=== PATIENT | male | born 1945 | race Caucasian/White ===

== ENCOUNTER 2018-11-13 14:29 | Inpatient (IN) ==
[2018-11-13 14:58] LABS: URINE SOURCE CLEAN CATCH
--- NOTE | 2018-11-13 15:03 | Diag Imaging Result Doc PS360 ---
EXAM: KUB ABDOMEN 11/13/2018 HISTORY: abdominal pain TECHNIQUE: KUB COMMENT: There is gas throughout the colon. There is no evidence organomegaly or mass. There are surgical clips in the pelvis consistent with previous prostatectomy. There is no evidence of bowel obstruction. IMPRESSION: Nonspecific abdomen. Electronically signed by Barney Colón 11/13/2018 3:00 PM
[2018-11-13 15:19] LABS: BILIRUBIN URINE NEGATIVE (NEGATIVE); BLOOD URINE NEGATIVE (NEGATIVE); COLOR YELLOW; GLUCOSE URINE 300 mg/dL (NEGATIVE); KETONE URINE NEGATIVE (NEGATIVE); LEUKOCYTES URINE NEGATIVE (NEGATIVE); NITRITE URINE NEGATIVE (NEGATIVE); PH URINE 8.5; PROTEIN URINE TRACE mg/dL (NEGATIVE); SP GRAVITY URINE 1.014; TURBIDITY URINE CLEAR (CLEAR); UROBILINOGEN URINE NORMAL (NORMAL)
[2018-11-13 15:22] LABS: UR EPITHELIAL CELLS <10 /HPF (<10); URINE BACTERIA NEGATIVE /HPF; URINE RBC <10 /HPF (<10); URINE WBC <10 /HPF (<10)
[2018-11-13 15:23] LABS: AGAP 11; ALB/GLOB RATIO 1.3; ALBUMIN 4.2 g/dL (3.5-5.0); ALKALINE PHOSPHATASE 74 U/L (32-122); AMYLASE 42 U/L (20-200); BUN 13 mg/dL (8-22); CALCIUM 9.5 mg/dL (8.8-10.2); CHLORIDE 97 mmol/L (98-107); COSMO 274; CREATININE 0.9 mg/dL (0.7-1.2); ESTIMATED GFR > 60; GLUCOSE 231 mg/dL (70-104); GOT 16 U/L (10-34); GPT 13 U/L (10-44); LIPASE 43 U/L (13-60); POTASSIUM 3.9 mmol/L (3.5-5.1); SODIUM 133 mmol/L (136-145); TCO2 25 mmol/L (25-35); TOTAL BILIRUBIN 0.47 mg/dL (0.20-1.00); TOTAL PROTEIN 7.4 g/dL (6.3-8.3)
[2018-11-13 15:26] LABS: BASO# 0.04 X1000 (0.0-0.2); BASO% 0.2 % (0.0-0.8); EOS# 0.12 X1000 (0.0-0.7); EOS% 0.7 % (0.0-10.0); HEMATOCRIT 43.3 % (42.0-52.0); HEMOGLOBIN 14.7 g/dL (14.0-18.0); IMM GRAN# 0.06 X1000 (0.0-0.04); IMM GRAN% 0.3 % (0.0-0.5); LYMPH# 1.45 X1000 (1.2-3.4); LYMPH% 7.9 % (20.5-51.1); MCH 30.8 PG (27-31); MCHC 33.9 g/dL (33-37); MCV 90.6 FL (81-99); MONO# 1.43 X1000 (0.11-0.59); MONO% 7.8 % (1.7-9.3); MPV 10.3 FL (7.4-10.4); NEUT# 15.14 X1000 (1.4-6.5); NEUT% 83.1 % (42.2-75.2); PLT 250 X1000 (130-400); RBC 4.78 XMIL (4.7-6.1); RDW 12.8 % (11.5-14.5); WBC 18.24 X1000 (4.8-10.8)
--- NOTE | 2018-11-13 16:18 | Diag Imaging Result Doc PS360 ---
EXAM: CT ABDOMEN/PELVIS W/O CONTRAST 11/13/2018 HISTORY: FLANK PAIN TECHNIQUE: This exam was performed using automated exposure control, adjustment of mA or kV according to patient size, and/or use of iterative reconstruction technique. COMMENT: There is no evidence of acute disease in the visualized portion of the chest. There are no previous studies available for comparison. There is a large hiatal hernia. There is no evidence of nephrolithiasis or hydronephrosis. There is dilatation of the infrarenal abdominal aorta to a maximum AP diameter of 3.1 cm. There is inflammatory change in the fat surrounding the pancreatic head. The stomach is not distended. The gallbladder is not distended. There may be a small stone in the neck of the gallbladder. The common bile duct is distended to over 11 mm in its midportion. There is no evidence of bowel obstruction. There is no evidence of significant adenopathy. There is no evidence of appendicitis. There is no evidence of free fluid. There has been previous prostatectomy. There is a fat-containing inguinal hernia on the left and there has apparently been previous right herniorrhaphy. There are degenerative disc changes at the L5-S1 level. There is no evidence of acute bony abnormality. IMPRESSION: Pancreatitis involving the pancreatic head. The possibility of an obstructing stone or other lesion in the distal common bile duct cannot be excluded. The lack of intravenous contrast limits evaluation. Electronically signed by Barney Colón 11/13/2018 4:16 PM
--- NOTE | 2018-11-13 16:19 | Diag Imaging Result Doc PS360 ---
EXAM: CHEST-2 VIEWS 11/13/2018 HISTORY: ABD PAIN TECHNIQUE: PA and lateral chest COMMENT: There is COPD. There is ill-defined opacity in the mid right lung apparently in the upper lobe which was not present on 03/12/2018. Otherwise are has been no significant change in the appearance of the chest. IMPRESSION: Minimal pneumonia right upper lobe. Advise follow-up until clear. Electronically signed by Barney Colón 11/13/2018 4:17 PM
[2018-11-13] MEDS ORDERED: NS 1,000 ML IV ONE (16:22)
[2018-11-13] MEDS ORDERED: ROCEPHIN 1 GM in NS 50 ML IV ONE (16:22)
[2018-11-13] MEDS ORDERED: ZITHROMAX 500 MG/NS 500 MG/250 ML IVPB IV ONE (16:22)
[2018-11-13] MEDS ORDERED: MORPHINE IV ONE ×2 (16:27→18:24)
[2018-11-13] MEDS ORDERED: ZOFRAN IV ONE (16:27)
--- NOTE | 2018-11-13 16:40 | PROVIDER DOCUMENTATION ---
This chart was entered by Sita Davis Scribe, acting as scribe for Charles Sena MD. HPI-Abdominal Pain/GI Problem - General Chief Complaint: Abdominal Pain Stated Complaint: ABDOMINAL PAIN Time Seen by Provider: 11/13/18 16:24 Source: patient - History of Present Illness-ABD Nature of Presenting Problems: Patient is a 73 year old male who presents with epigastric abdominal pain. States pain has been present for 3 days. Denies nausea, vomiting and diarrhea. Reports having mild constipation. Abdominal Pain Onset Location: reports: epigastric Pain Radiation: reports: no radiation Quality of Pain: reports: aching Severity in ED: reports: mild Onset/Duration: reports: 3 days ago Timing: reports: still present Activities at Onset: reports: light activity Associated Symptoms: reports: constipation. denies: diarrhea, nausea, vomiting Bruising or Bleeding Gums?: No Similar Symptoms Previously?: Yes Recently seen or treated by another doctor?: No Review of Systems - Adult - REVIEW OF SYSTEMS - ADULT Constitutional: reports: no symptoms reported. denies: chills, fever, fatique Eyes: reports: no symptoms reported Ears, Nose, Mouth & Throat: reports: no symptoms reported Cardiovascular: reports: no symptoms reported Respiratory: reports: see HPI, cough. denies: shortness of breath, wheezing Gastrointestinal: reports: see HPI, abdominal pain (epigastric). denies: diarrhea, nausea, vomiting Genitourinary: reports: no symptoms reported Musculoskeletal: reports: no symptoms reported Integumentary: reports: no symptoms reported Neurological: reports: no symptoms reported Psychiatric: reports: no symptoms reported Endocrine: reports: no symptoms reported Hematologic/Lymphatic: reports: no symptoms reported Allergic/Immunologic: reports: no symptoms reported All Other Systems: Reviewed and Negative Past History - Adult - PAST MEDICAL HISTORY-ADULT Review of Records: reports: Old Records Reviewed, Nursing Assessment Review, Medications Reviewed, Social history reviewed & non-contributory. Major Childhood Illnesses: reports: denies history Cardiovascular: reports: denies history Respiratory: reports: denies history Gastrointestinal: reports: denies history Obstetrical/Gynecological: reports: denies history Genitourinary: reports: denies history Musculoskeletal: reports: denies history Neurological: reports: denies history Endocrine/Immune: reports: denies history Other Conditions: reports: denies history - PRIOR SURGERIES/PROCEDURES Surgical/Procedure History: reports: reviewed, not pertinent - IMMUNIZATION STATUS Childhood Immunizations: See Nurse Assessment Flu Vaccine: See Nurse Assessment - FAMILY HISTORY Family History: reviewed, not pertinent - SOCIAL HISTORY Smoking: denies Substance Use: denies Living Situation: family Physical Exam-General - PHYSICAL EXAM-ADULT Initial Vital Signs Reviewed: Yes - CONSTITUTIONAL General Appearance: alert, no apparent distress. negative: lethargic - EYES Eyes: PERRL/EOMI, pink conjunctivae. negative: scleral icterus - HEAD, EARS, NOSE, MOUTH & THROAT HENMT: normocephalic/atraumatic, moist mucous membranes. negative: angioedema - RESPIRATORY Respiratory: chest non-tender, lungs clear, normal breath sounds. negative: crackles, stridor - CARDIOVASCULAR Cardiovascular: normal peripheral pulses, regular rate, rhythm. negative: tach ycardia - GASTROINTESTINAL (ABDOMEN) Abdominal Exam: normal bowel sounds, soft, tenderness (epigastric). negative: guarding - MUSCULOSKELETAL Extremity: normal range of motion, non-tender, normal inspection. negative: de formity, erythema - SKIN Integumentary: normal color, normal turgor, warm/dry. negative: diaphoresis, jaundice, rash - NEUROLOGIC Neurologic: grossly normal. negative: aphasia, facial droop - PSYCHIATRIC Psych/Mental Status: normal mood/affect, oriented x 3. negative: anxious Progress - PLAN OF CARE/RESULTS Progress/Plan/Lab Results: Vital Signs - 8 hr 11/13/18 14:38 Temperature 98.2 F Pulse Rate 91 H Respiratory Rate 16 Blood Pressure 150/64 O2 Sat by Pulse Oximetry 96 Laboratory Results - last 24 hr 11/13/18 11/13/18 11/13/18 14:44 14:50 14:50 WBC 18.24 H RBC 4.78 Hgb 14.7 Hct 43.3 MCV 90.6 MCH 30.8 MCHC 33.9 RDW Std Deviation 12.8 Plt Count 250 MPV 10.3 Immature Gran % (Auto) 0.3 Neut % (Auto) 83.1 H Lymph % (Auto) 7.9 L [place] % (Auto) 7.8 Eos % (Auto) 0.7 Baso % (Auto) 0.2 Immature Gran # (Auto) 0.06 H Neut # (Auto) 15.14 H Lymph # (Auto) 1.45 [place] # (Auto) 1.43 H Eos # (Auto) 0.12 Baso # (Auto) 0.04 Sodium 133 L Potassium 3.9 Chloride 97 L Carbon Dioxide 25 Anion Gap 11 BUN 13 Creatinine 0.9 Estimated GFR/1.73 m2 > 60 BUN/Creatinine Ratio 14 Glucose 231 H Calculated Osmolality 274 Calcium 9.5 Total Bilirubin 0.47 AST 16 ALT 13 Alkaline Phosphatase 74 Total Protein 7.4 Albumin 4.2 Globulin 3.2 Albumin/Globulin Ratio 1.3 Amylase 42 Lipase 43 Urine Source CLEAN CATCH Urine Color YELLOW Urine Turbidity CLEAR Urine pH 8.5 Ur Specific [place] 1.014 Urine Protein TRACE A Ur Glucose (Stick) 300 A Ur Ketones (Stick) NEGATIVE Urine Blood NEGATIVE Urine Nitrite NEGATIVE Urine Bilirubin NEGATIVE Urobilinogen Dipstick NORMAL Urine Leukocytes NEGATIVE Urine WBC (Auto) <10 Urine RBC (Auto) <10 U Epithel Cells (Auto) <10 Urine Bacteria (Auto) NEGATIVE Orders Category Date Time Status Saline Loc DIRECTED Care 11/13/18 14:41 Active NPO Diet 11/13/18 14:41 Active CHEST-2 VIEWS [RAD] Stat Exams 11/13/18 15:[address] ABDOMEN/PELVIS W/O CONTRAST [CT] Stat Exams 11/13/18 15:29 Completed KUB ABDOMEN [RAD] Stat Exams 11/13/18 14:42 Completed AMYLASE [CHEM] Stat Lab 11/13/18 14:50 Completed BLOOD CULTURE [BLDCUL] Stat Lab 11/13/18 16:22 Uncollected CBC WITH ELECTRONIC DIFF [HEME] Stat Lab 11/13/18 14:50 Completed COMPREHENSIVE METABOLIC PANEL [CHEM] Stat Lab 11/13/18 14:50 Completed LACTATE, PLASMA [CHEM] Stat Lab 11/13/18 16:22 Uncollected LIPASE [CHEM] Stat Lab 11/13/18 14:50 Completed URINALYSIS W/POSS RFLX CULT [URINALYSIS] Stat Lab 11/13/18 14:44 Completed 0.9% Sodium Chloride Inj [Ns] 1,000 ml Med 11/13/18 16:22 Active IV 150 mls/hr Azithromycin 500 mg/Ns [Zithromax 500 mg/Ns] Med 11/13/18 16:22 Active 500 mg in 250 ml IV NOW CefTRIAXONE [Rocephin] 1 gm Med 11/13/18 16:22 Active 0.9% Sodium Chloride Inj [Ns] 50 ml IV NOW Result Diagrams: 11/13/18 14:50 11/13/18 14:50 - XRAY 1 XRAY Study: Chest Impression: See EMR Report (EXAM: CHEST-2 VIEWS 11/13/2018 HISTORY: ABD PAIN TECHNIQUE: PA and lateral chest COMMENT: There is COPD. There is ill-defined opacity in the mid right lung apparently in the upper lobe which was not present on 03/12/2018. Otherwise are has been no significant change in the appearance of the chest. IMPRESSION: Minimal pneumonia right upper lobe. Advise follow-up until clear. Electronically signed by Barney Colón 11/13/2018 4:17 PM 11/13/18 1617 Interpreting Physician: Barney Colón MD Dictated Date/Time: 11/13/18 1616 cc: Charles Sena MD; Alanna Martinez MD) 2 XRAY Study: Abdomen Impression: See EMR Report ( EXAM: KUB ABDOMEN 11/13/2018 HISTORY: abdominal pain TECHNIQUE: KUB COMMENT: There is gas throughout the colon. There is no evidence organomegaly or mass. There are surgical clips in the pelvis consistent with previous prostatectomy. There is no evidence of bowel obstruction. IMPRESSION: Nonspecific abdomen. Electronically signed by Barney Colón 11/13/2018 3:00 PM 11/13/18 1500 Interpreting Physician: Barney Colón MD Dictated Date/Time: 11/13/18 1500 cc: Charles Sena MD; Alanna Martinez MD) - CT/MRI 1 CT Study: Abdomen, Pelvis Impression: See EMR Report ( EXAM: CT ABDOMEN/PELVIS W/O CONTRAST 11/13/2018 HISTORY: FLANK PAIN TECHNIQUE: This exam was performed using automated expo sure control, adjustment of mA or kV according to patient size, and/or use of iterative reconstruction technique. COMMENT: There is no evidence of acute disease in the visualized portion of the chest. There are no previous studies available for comparison. There is a large hiatal hernia. There is no evidence of nephrolithiasis or hydronephrosis. There is dilatation of the infrarenal abdominal aorta to a maximum AP diameter of 3.1 cm. There is inflammatory change in the fat surrounding the pancreatic head. The stomach is not distended. The gallbladder is not distended. There may be a small stone in the neck of the gallbladder. The common bile duct is distended to over 11 mm in its midportion. There is no evidence of bowel obstruction. There is no evidence of significant adenopathy. There is no evidence of appendicitis. There is no evidence of free fluid. There has been previous prostatectomy. There is a fat-containing inguinal hernia on the left and there has apparently been previous right herniorrhaphy. There are degenerative disc changes at the L5-S1 level. There is no evidence of acute bony abnormality. IMPRESSION: Pancreatitis involving the pancreatic head. The possibility of an obstructing stone or other lesion in the distal common bile duct cannot be excluded. The lack of intravenous contrast limits evaluation. Electronically signed by Barney Colón 11/13/2018 4:16 PM 11/13/18 1616 Interpreting Physician: Barney Colón MD Dictated Date/Time: 11/13/18 1611 cc: Charles Sena MD; Alanna Martinez MD) - CONSULTS/PCP/HOSPITALIST Notification #1 *Consult/PCP/Hospitalist*: Dr. Gunter for Dr. Martinez Time Discussed: 16:32 Reason/Comments: Dr. Sena consulted with Dr. Gunter about patient. Consult Disposition: Admit Departure - Departure Date of Disposition Decision: 11/13/18 Time of Disposition Decision: 16:33 DIAGNOSIS: Pancreatitis, Pneumonia Disposition: ADMITTED INPATIENT 09 Certified Medical Emergency: Emergent Condition: Stable Referrals and Follow-Ups: Alanna Martinez MD [Primary Care Provider] - - Critical Care Note This patient required my direct & personal management of CC.: No Attestation - Physician/ SABI Attestation The physician spent face to face time with patient:: Yes Advanced Practice Provider documentation review:: Supervising physician onsite and consulted in the evaluation and care of this patient. The physician did have a face to face encounter with the patient. This chart was documented by the indicated scribe, (Sita Davis Scribe) and accurately reflects the services I performed and decisions made by me, Charles Sena MD, as attested by the provider's signature.
--- NOTE | 2018-11-13 18:56 | HISTORY AND PHYSICAL ---
HISTORY OF PRESENT ILLNESS: Mr. Hernandez presented to the ER with a 3-day history of sharp, stabbing right upper quadrant and epigastric pain in association with nausea and vomiting. He denied any reflux, sour brash, dysphagia, melena or hematochezia. Stools were dark brown. A flat and upright abdominal film demonstrated no evidence of obstruction. A followup CT scan of the abdomen and pelvis without contrast demonstrated acute pancreatitis of the head of the pancreas. He has never had a previous cholecystectomy. He is with complaint of a cough productive of clear to yellowish sputum. Low-grade fever with a T-max of 100. Chills and mild pleuritic chest right pleuritic chest pain. A chest x-ray demonstrated haziness in the right upper lobe suggestive of pneumonia. PAST MEDICAL HISTORY: Essential hypertension, depression, mixed hyperlipidemia. Gastroesophageal reflux disease. PAST SURGICAL HISTORY: Radical prostatectomy, secondary to prostate cancer. ALLERGIES: No known drug allergies. FAMILY HISTORY: Noncontributory. SOCIAL HISTORY: He is a former smoker. He does not consume alcoholic beverages. He is and lives with his spouse. MEDICATIONS: Celexa 20 mg daily, omeprazole 20 mg b.i.d., ramipril 5 mg daily. Metformin 1000 mg b.i.d., pravastatin 80 mg at bedtime. Amaryl 1 mg b.i.d. REVIEW OF SYSTEMS: General: He denies any recent weight gain or weight loss. HEENT: He wears glasses. He is hard of hearing. CV: No chest pain, palpitations, or anginal equivalents. Pulmonary: No shortness of breath, PND, orthopnea. GI: Abdomen-see HPI. Endocrine: No polyuria, no polydipsia. No cold or heat intolerance. Skin: No easy bruisability. : No leakage of urine with coughing or laughing. Skin: No easy bruisability. Neurologic: Neuro no migraines or seizures. PHYSICAL EXAMINATION: GENERAL: This is an elderly, frail, 73-year-old gentleman in no apparent distress. VITAL SIGNS: Temperature 98.2 degrees, pulse 91, respirations 16, blood pressure 150/64. HEENT: Fundi with arteriolar wall thickening. Pupils equal, round, reactive to light. Extraocular eye movements intact. TMs without bullae. NECK: Supple. No masses, JVD or bruits. CARDIOVASCULAR: Regular rate and rhythm. LUNGS: Clear. No wheezing with forced expiration. There are faint rhonchi in the right upper lung field. ABDOMEN: Marked epigastric and right upper quadrant tenderness with some guarding. There is no rebound. He has bowel sounds. EXTREMITIES: Without edema. SKIN: No palpable purpura. GENITOURINARY AND RECTAL: Deferred. NEUROLOGIC: Nonfocal. ASSESSMENT AND PLAN: 1. Acute pancreatitis. The etiology of his pancreatitis is unclear. He has never had a cholecystectomy. His initial CT scan of the abdomen and pelvis demonstrated what appeared to be a small stone in the neck of the gallbladder and the common bile duct was distended to over 11 mm in its mid portion. Liver function tests were within normal limits. We will hold him NPO. I will begin normal saline at 75 mL/hour and will use morphine as needed for pain. We will consult surgery to assess for whether or not we should proceed with a cholecystectomy. 2. Essential hypertension. We will continue ramipril 5 mg daily. 3. Type 2 [id number] diabetes mellitus. Uncomplicated. Blood sugars are stable. We will hold metformin and Amaryl. I will place him on patterned sugars and a Humulin R sliding scale. 4. Right upper lobe pneumonia/. Given the nausea and vomiting, I wonder if he has aspirated. He has already gotten Rocephin and Zithromax in the ER. I will began Levaquin 500 mg IV daily as well as clindamycin 900 mg IV q.8 hours. Given his clinical presentation and comorbid conditions, I believe that admission to the hospital is both reasonable and necessary. I anticipate that he will be in the hospital for at least 2 midnights and I will therefore place him in inpatient status. I will begin Lovenox 40 mg subcutaneously daily for DVT prophylaxis. cc: Ahmet Martinez MD
[2018-11-13] MEDS ORDERED: SODIUM CHLORIDE 0.9% INJ PRN (19:41)
[2018-11-13] MEDS ORDERED: TYLENOL PO PRN (19:41)
[2018-11-13] MEDS: NS 1,000 ML IV SCH ×2 (19:52→19:53)
[2018-11-13] MEDS ORDERED: AFRIN NASAL SPRAY NAS PRN (20:30)
--- NOTE | 2018-11-13 20:36 | GENERAL SURGERY CONSULTATION ---
DATE: 11/13/2018 Mr. Hernandez is a pleasant 73-year-old male who is admitted with epigastric pain. Is associated with nausea and vomiting. It has been occurring for the last few days. When he came in today his CT scan showed a possible stone in the neck of the gallbladder, a slightly dilated common duct, some inflammation around the head of his pancreas consistent with localized pancreatitis. His other medical problems include hypertension, mixed hyperlipidemia, gastroesophageal reflux, and depression. Previous surgery includes a prostatectomy. MEDICATIONS: Include Celexa, omeprazole, ramipril, metformin, pravastatin and Amaryl. ALLERGIES: He has no known drug allergies. FAMILY HISTORY: Noncontributory. SOCIAL HISTORY: He is , lives with his spouse. He denies alcohol intake. Denies smoking. REVIEW OF SYSTEMS: As noted above. Denies any chest pain, shortness of breath or cough. He just simply complains about the epigastric pain. EXAM: He is afebrile. Heart rate 76, blood pressure 115/59, respiratory rate 20. He has no cervical adenopathy. No carotid bruits. Bilateral breath sounds.Heart: Regular rate and rhythm. Abdomen: Soft. He is tender in the epigastrium. No peripheral edema. He has posterior tibial pulses bilaterally. He is awake, alert and oriented. LABS: White count is 18,200, hemoglobin 14.7, hematocrit 43. Total bilirubin 0.47, alkaline phosphatase 74, amylase 42, lipase 43. CT scan suggests possible stone in the neck of the gallbladder, a little dilated common bile duct slightly. Some inflammation of the pancreas. INTERPRETATION: Pancreatitis. Certainly the most common possibility would be gallstones. I discussed this with him. I have recommended a cholecystectomy. We discussed benefits and risks of the surgery. He understands and wants to proceed. His is in attendance. Her questions were answered as well. We will plan to proceed the morning of the . cc: MD Ahmet Gomez MD
[2018-11-13] MEDS: LOVENOX SUBQ SCH (22:03)
[2018-11-13] MEDS: CLINDAMYCIN 900 MG/D5W 900 MG/50 ML IVPB IV SCH (22:04)
[2018-11-13] MEDS: MORPHINE IV PRN (22:05)
[2018-11-13] MEDS: HUMULIN R SUBQ SCH (22:05)
[2018-11-13] MEDS: PRAVACHOL PO SCH (22:05)
[2018-11-14] MEDS: MORPHINE IV PRN (03:23)
[2018-11-14] MEDS: CLINDAMYCIN 900 MG/D5W 900 MG/50 ML IVPB IV SCH ×3 (04:08→20:03)
[2018-11-14] MEDS: HUMULIN R SUBQ SCH ×4 (06:05→20:03)
[2018-11-14] MEDS: PRILOSEC PO SCH (06:06)
[2018-11-14 07:19] LABS: HEMATOCRIT 38.3 % (42.0-52.0); HEMOGLOBIN 12.2 g/dL (14.0-18.0); MCH 30.5 PG (27-31); MCHC 31.9 g/dL (33-37); MCV 95.8 FL (81-99); MPV 10.5 FL (7.4-10.4); WBC 13.27 X1000 (4.8-10.8)
[2018-11-14] MEDS ORDERED: QUELICIN (DOSE) ONE (07:31)
[2018-11-14] MEDS ORDERED: XYLOCAINE-MPF 2% ONE (07:31)
[2018-11-14] MEDS ORDERED: DIPRIVAN 1% ONE (07:33)
[2018-11-14] MEDS ORDERED: LR 1,000 ML ONE (07:35)
[2018-11-14] MEDS ORDERED: SENSORCAINE-MPF 0.5%/EPI 1:200,000 ONE (07:35)
[2018-11-14] MEDS ORDERED: SODIUM CHLORIDE 0.9% ONE (07:36)
[2018-11-14 07:38] LABS: ALB/GLOB RATIO 1.2; ALBUMIN 3.5 g/dL (3.5-5.0); CALCIUM 8.6 mg/dL (8.8-10.2); CREATININE 1.3 mg/dL (0.7-1.2); TOTAL BILIRUBIN 0.41 mg/dL (0.20-1.00); TOTAL PROTEIN 6.5 g/dL (6.3-8.3)
[2018-11-14] MEDS ORDERED: ZOFRAN ONE (07:43)
[2018-11-14] MEDS ORDERED: DECADRON ONE (07:43)
[2018-11-14] MEDS ORDERED: ZEMURON ONE ×2 (07:45→08:42)
[2018-11-14] MEDS ORDERED: OFIRMEV 1000 MG/ISOTONIC SOLN 1,000 MG/100 ML BOTTLE ONE (08:27)
[2018-11-14] MEDS ORDERED: NEOSTIGMINE ONE ×2 (08:29→08:52)
[2018-11-14] MEDS ORDERED: ROBINUL ONE (08:29)
[2018-11-14] MEDS: LEVAQUIN 500 MG/D5W 500 MG/100 ML IVPB IV SCH (08:55)
[2018-11-14] MEDS ORDERED: FENTANYL ONE (09:00)
[2018-11-14] MEDS ORDERED: BRIDION ONE (09:23)
--- NOTE | 2018-11-14 09:55 | Diag Imaging Result Doc PS360 ---
EXAM: OPERATIVE CHOLANGIOGRAM 11/14/2018 HISTORY: CHOLECYSTITIS TECHNIQUE: One view AP right eight seconds fluoroscopy time, 0.92 mGy. COMMENT: There are no definite filling defects in the common hepatic or common bile ducts. Contrast is not clearly seen entering the duodenum however. IMPRESSION: No definite retained stones. Electronically signed by Barney Colón 11/14/2018 9:53 AM
--- NOTE | 2018-11-14 10:14 | PROGRESS NOTE ---
DATE: 11/14/2018 SUBJECTIVE: Mr. Hernandez was admitted to [facility] with gallstone pancreatitis. He continues with nausea, but no vomiting and mild abdominal pain. He underwent a successful laparoscopic cholecystectomy this morning. Postoperatively he is awake and alert and easily arousable. He denies any chest pain, palpitations, or anginal equivalents. He does have a history of type 2 noninsulin-dependent diabetes mellitus. Blood sugars are ranging from 145 to 205. He denies any polyuria, polydipsia or episodes of symptomatic hypoglycemia. His blood pressure is stable. OBJECTIVE: Vital signs: Temperature 99.9 degrees pulse 85, respirations 16, O2 saturation 93% on room air. CV: Regular rate and rhythm. Lungs: Faint rhonchi in the right upper lung harman. Abdomen: Diffusely tender. Hypoactive bowel sounds. No rebound or guarding. ASSESSMENT AND PLAN: 1. Gallstone pancreatitis. He is status post laparoscopic cholecystectomy. We will begin a clear liquid diet and advance his diet as tolerated. We will use [place] on an as-needed basis for pain. If he is able to tolerate clear liquids without nausea, vomiting, or worsening abdominal pain, we hope to be able to discharge him tomorrow. His intraoperative cholangiogram did not show any retained stones. 2. Hypertension. Blood pressure is stable. We will continue ramipril. 3. Type 2 non insulin-dependent diabetes mellitus. We will continue to hold metformin and Amaryl. We will continue pattern sugars and a Humulin R sliding scale. 4. Community-acquired pneumonia. We will continue intravenous Levaquin. His white count has dropped from 18,000 to 13,000. I will recheck a CBC in the morning. cc: Ahmet Martinez MD
--- NOTE | 2018-11-14 10:23 | OPERATIVE NOTE ---
PROCEDURE DATE : 11/14/2018 PROCEDURE: Laparoscopic cholecystectomy with operative cholangiogram. SURGEON: Emeterio Garduno MD PERFORMING ARTIST: Seth. PREOPERATIVE DIAGNOSES: 1. Chronic acalculous cholecystitis. 2. Gallstone pancreatitis. POSTOPERATIVE DIAGNOSES: 1. Chronic acalculous cholecystitis. 2. Gallstone pancreatitis. FINDINGS: Cholangiogram revealed a minimally dilated common duct. There was flow into the duodenum. No intraluminal filling defects were seen. DESCRIPTION OF PROCEDURE: Satisfactory general endotracheal anesthesia was achieved. The abdomen was prepped and draped in sterile fashion. We anesthetized the skin below the umbilicus, incised the skin, scored the fascia, and introduced an 11 trocar with Optiview technique. We insufflated through this trocar. Under direct visualization we introduced a 5 trocar at the midclavicular line, a 5 trocar near the anterior axillary line, and an 11 mm trocar in the midepigastrium. We placed the patient in reverse Trendelenburg and turned him to the left. We identified the gallbladder. It was surrounded by quite a bit of fat and had some omental adhesions. We grasped the fundus, reflected it cephalad, and we dissected the omental adhesions off the fundus and infundibulum and dissected down until we could identify the infundibulum satisfactorily. We then dissected the triangle of [place]. We identified the cystic duct and clipped it near the junction of the gallbladder. We incised the cystic duct, introduced a Grady catheter, and shot the cholangiogram and the findings above were noted. We removed the cholangiogram catheter and clipped the cystic duct on the opposite side of the cystic ductotomy times 2 and then transected it. The cystic artery apparently was incorporated into this or a small branch but we continued to dissect the triangle of [place] and identified what might have been another branch of the cystic artery and we clipped it as well. We then used the electrocautery spatula to dissect the gallbladder away from the liver. After complete separation of gallbladder from the liver, we changed the videolaparoscope to the mid-epigastric trocar, introduced an EndoCatch and placed the gallbladder within the bag and delivered it out of the abdominal cavity. We looked back and hemostasis was satisfactory. We flattened the patient. We used a Abraham-Karen wound closure for the epigastrium and then desufflated and removed our other trocars. We closed the fascia at the umbilicus with 2-0 Polysorb fascial stitches times 3. We then closed the skin of each incision with 4-0 Polysorb subcuticular stitches. Sterile OpSites were applied. He tolerated it well and was sent to the recovery room in satisfactory condition. cc: MD Ahmet Gomez MD
[2018-11-14] MEDS: ALTACE PO SCH (11:05)
[2018-11-14] MEDS: CELEXA PO SCH (11:05)
[2018-11-14] MEDS: NS 1,000 ML IV SCH (11:05)
[2018-11-14] MEDS: NORCO-10 PO PRN ×3 (13:17→21:32)
[2018-11-14] MEDS: LOVENOX SUBQ SCH (20:03)
[2018-11-14] MEDS: PRAVACHOL PO SCH (20:03)
[2018-11-15] MEDS: NORCO-10 PO PRN ×5 (01:44→18:29)
[2018-11-15] MEDS: NS 1,000 ML IV SCH ×2 (01:45→13:18)
[2018-11-15] MEDS: PRILOSEC PO SCH (06:00)
[2018-11-15] MEDS: HUMULIN R SUBQ SCH ×4 (06:01→20:25)
[2018-11-15] MEDS: CLINDAMYCIN 900 MG/D5W 900 MG/50 ML IVPB IV SCH ×3 (06:03→20:25)
[2018-11-15 07:07] LABS: HEMOGLOBIN 11.5 g/dL (14.0-18.0); MCH 30.6 PG (27-31); MCHC 31.9 g/dL (33-37); MCV 95.7 FL (81-99); MPV 10.2 FL (7.4-10.4); RBC 3.76 XMIL (4.7-6.1); RDW 12.9 % (11.5-14.5); WBC 10.78 X1000 (4.8-10.8)
[2018-11-15 07:34] LABS: ALB/GLOB RATIO 1.3; ALBUMIN 3.4 g/dL (3.5-5.0); CREATININE 1.2 mg/dL (0.7-1.2); POTASSIUM 4.1 mmol/L (3.5-5.1); TOTAL BILIRUBIN 0.74 mg/dL (0.20-1.00)
--- NOTE | 2018-11-15 10:28 | PROGRESS NOTE ---
DATE: 11/15/2018 SUBJECTIVE: Mr. Hernandez was admitted to [facility] with gallstone pancreatitis. He is postoperative day #1 following a laparoscopic cholecystectomy. He has appropriate abdominal soreness. He has had no nausea or vomiting. He is tolerating clear liquids. He has not been able to void independently since surgery. He required an in-and-out catheterization early this morning. He still has not voided. He also was noted to have of a community-acquired pneumonia with an infiltrate in the right upper lobe. O2 saturations have been marginal. O2 saturations have ranged from 91 to 92 percent on 3 L of O2. He continues with a persistent nonproductive cough and is with complaint of mild dyspnea. OBJECTIVE: Vital Signs: Temperature 98.3 degrees, pulse 76, respirations 18, BP 113/61. Cardiovascular: Regular rate and rhythm. Lungs: Faint rhonchi in the right upper lung field. Abdomen: Soft, nondistended with good bowel sounds. There is no rebound or guarding. Extremities: Without edema. LABORATORY DATA: Various laboratory studies were obtained. A CBC demonstrated white count 10.7, hemoglobin 11.3, hematocrit 36.0 and a platelet count of 205,000. Electrolytes demonstrated the following: Sodium 132, potassium 4.1, chloride 100, BUN 21, creatinine 1.2, glucose 129. ASSESSMENT AND PLAN: 1. Gallstone pancreatitis. Clinically, he is tolerating clear liquids without nausea or vomiting. We will advance him to a gastrointestinal soft diet. 2. Community-acquired pneumonia. I will check a room air O2 saturation and stop his oxygen if his O2 saturation is greater than 90%. We will recheck a chest x-ray today. We will continue intravenous Levaquin. 3. Type 2 que-sbfuzvp-rxtzicddo diabetes mellitus. Until he is eating consistently, I am going to hold the Amaryl and metformin. We will continue pattern sugars and a Humulin R sliding scale. 4. Acute urinary retention. I am going to have one of the nurses repeat a bladder scan. If he is still retaining significant amounts of urine, we will place a Mathias catheter. cc: Ahmet Martinez MD
[2018-11-15] MEDS: ALTACE PO SCH (10:34)
[2018-11-15] MEDS: CELEXA PO SCH (10:34)
[2018-11-15] MEDS: LEVAQUIN 500 MG/D5W 500 MG/100 ML IVPB IV SCH (10:35)
--- NOTE | 2018-11-15 11:03 | GENERAL SURGERY PROGRESS NOTE ---
DATE: 11/15/2018 Mr. Hernandez is postop day 1 after laparoscopic cholecystectomy. He is afebrile. Hemodynamics are good. He has not been able to void so he is having a Mathias placed to empty his bladder. He is taking liquids satisfactorily. Plan is per Dr. Martinez. cc: MD Ahmet Gomez MD
--- NOTE | 2018-11-15 14:09 | Diag Imaging Result Doc PS360 ---
EXAM: CHEST-PORTABLE 11/15/2018 HISTORY: pneumonia TECHNIQUE: AP portable upright at 1351 COMMENT: There is cardiomegaly. There is increased interstitial opacity in the lung bases including the lower portions of the upper lobes. This was not present previously on 11/13/2018. IMPRESSION: Pulmonary edema and/or pneumonia. Electronically signed by Barney Colón 11/15/2018 2:07 PM
[2018-11-15] MEDS ORDERED: SALINE LOCK IV FLUID XX ONE (18:33)
[2018-11-15] MEDS ORDERED: LASIX IV ONE (18:33)
[2018-11-15] MEDS: PRAVACHOL PO SCH (20:25)
[2018-11-15] MEDS: LOVENOX SUBQ SCH (20:26)
[2018-11-16] MEDS: CLINDAMYCIN 900 MG/D5W 900 MG/50 ML IVPB IV SCH ×3 (05:13→21:04)
[2018-11-16] MEDS: PHENERGAN IV PRN (05:14)
[2018-11-16] MEDS: HUMULIN R SUBQ SCH ×4 (06:11→21:04)
[2018-11-16] MEDS: PRILOSEC PO SCH (06:22)
[2018-11-16] MEDS: ALTACE PO SCH (08:11)
[2018-11-16] MEDS: CELEXA PO SCH (08:11)
[2018-11-16] MEDS: LEVAQUIN 500 MG/D5W 500 MG/100 ML IVPB IV SCH (08:11)
[2018-11-16] MEDS: NORCO-10 PO PRN ×2 (08:11→12:27)
[2018-11-16] MEDS: LASIX IV SCH ×2 (08:17→21:03)
--- NOTE | 2018-11-16 08:47 | PROGRESS NOTE ---
DATE: 11/16/2018 SUBJECTIVE: Mr. Hernandez was admitted to [facility] with acute gallstone pancreatitis. He is postoperative day #2 following laparoscopic cholecystectomy. He denies any further nausea or vomiting or significant abdominal pain. He is tolerating a clear liquid diet. Postoperatively, he has developed acute urinary retention. Yesterday, we performed an in and out catheterization. He did not void for another 4 hours and had a residual of greater than 350 mils. We placed a Mathias catheter yesterday. On admission, he was noted to have a right upper lobe infiltrate. He was started on Levaquin. Chest x-ray yesterday demonstrated increasing infiltrate and diffuse interstitial edema. His oxygen levels fluctuated during the night. At one point, he required a Venturi mask. His O2 saturation this morning was 94% on 4 L of O2. OBJECTIVE: Temperature 98.9 degrees, pulse 91, respirations 19, and BP 143/61. CV: Regular rate and rhythm. Lungs: Crackles in the bases bilaterally with occasional end-expiratory wheezing. Air movement has improved as compared to yesterday's examination. Abdomen: Soft and nontender with active bowel sounds. Extremities: Without edema. ASSESSMENT AND PLAN: 1. Acute gallstone pancreatitis status post laparoscopic cholecystectomy. Clinically, he is doing well. We will advance him to a GI soft diet. 2. Pneumonia. I am concerned that he had an aspiration pneumonia. We will continue Levaquin. I added clindamycin over the weekend. We will begin DuoNeb nebulizer treatments, and I will recheck a portable chest x-ray in the morning. 3. Acute pulmonary edema. He has no previous history of congestive heart failure. We have saline locked his fluids. I will increase the Lasix to 40 mg IV q.12 hours. We will monitor his output closely. cc: Ahmet Martinez MD
[2018-11-16] MEDS: DUONEB (A & A) INH SCH ×4 (11:24→23:00)
[2018-11-16] MEDS ORDERED: DULCOLAX PR ONE (12:33)
--- NOTE | 2018-11-16 13:03 | GENERAL SURGERY PROGRESS NOTE ---
DATE: 11/16/2018 SUBJECTIVE: Mr. Hernandez required a Mathias catheter which released some of his bladder distention. He is on solid food. His bowels have moved. OBJECTIVE: His abdomen is still mildly distended. PLAN: We will give him Dulcolax suppository to help evacuate some of his gas, if possible. cc: MD Ahmet Gomez MD
[2018-11-16] MEDS: PRAVACHOL PO SCH (21:03)
[2018-11-16] MEDS: LOVENOX SUBQ SCH (21:03)
[2018-11-17] MEDS: DUONEB (A & A) INH SCH ×6 (03:22→23:32)
[2018-11-17] MEDS: CLINDAMYCIN 900 MG/D5W 900 MG/50 ML IVPB IV SCH ×3 (04:14→22:25)
[2018-11-17] MEDS: PRILOSEC PO SCH (06:30)
[2018-11-17] MEDS: HUMULIN R SUBQ SCH ×4 (06:30→22:26)
[2018-11-17 07:01] LABS: HEMOGLOBIN 12.3 g/dL (14.0-18.0); MCH 30.3 PG (27-31); MCHC 33.2 g/dL (33-37); MCV 91.1 FL (81-99); MPV 10.3 FL (7.4-10.4); RBC 4.06 XMIL (4.7-6.1); RDW 12.5 % (11.5-14.5); WBC 8.41 X1000 (4.8-10.8)
[2018-11-17 07:23] LABS: CALCIUM 9.1 mg/dL (8.8-10.2); CREATININE 1.2 mg/dL (0.7-1.2); POTASSIUM 3.2 mmol/L (3.5-5.1)
[2018-11-17] MEDS ORDERED: KLOR-CON PO ONE (08:20)
--- NOTE | 2018-11-17 08:22 | Diag Imaging Result Doc PS360 ---
CHEST-2 VIEWS - 11/17/2018 INDICATION: pneumonia and interstitial edema COMPARISON: 11/15/2018 FINDINGS: Stable cardiomegaly and pulmonary vascular congestion. Stable finding interstitial infiltrates bilaterally most compatible with pulmonary edema. There are trace bilateral pleural effusions. IMPRESSION: No change from prior. Electronically signed by Jerry Salazar 11/17/2018 8:19 AM
--- NOTE | 2018-11-17 08:49 | PROGRESS NOTE ---
DATE: 11/17/2018 SUBJECTIVE: Mr. Hernandez is postoperative day #3 following laparoscopic cholecystectomy for underlying gallstone pancreatitis. He is tolerating clear liquid diet without nausea, vomiting, or abdominal pain. He continues with a persistent cough and persistent episodes of hemoptysis. He has dyspnea with minimal activity. He is still requiring 4 L of O2 per nasal cannula. O2 saturations are in the range of 93% to 96%. A repeat chest x-ray continued to demonstrate interstitial edema. OBJECTIVE: Vital Signs: Temperature 99.6 degrees, pulse 88, respirations 18, BP 138/64. CV: Regular rate and rhythm. Lungs: Faint crackles in the bases bilaterally. There is improved aeration throughout the upper lung harman. Abdomen: Soft, nontender, with active bowel sounds. Extremities: Without edema. No palpable cords were appreciated. LABORATORY DATA: A CBC demonstrated a white count of 8.41, hemoglobin 12.3, hematocrit 37, and a platelet count of 247,000. Electrolytes demonstrate the following: Sodium 141, potassium 3.2, BUN 13, creatinine 1.2, and glucose 228. ASSESSMENT AND PLAN: 1. Gallstone pancreatitis. Postoperative day #3 following a laparoscopic cholecystectomy. Clinically, he continues to improve. I will advance him to a gastrointestinal soft diet. 2. Acute pulmonary edema. He denies any chest pain, palpitations, or anginal equivalents. He has no previous history of congestive heart failure. He has had over 5000 mL of urine output over the past 2 days. We will continue supplemental oxygen, diuresis with Lasix, and I will arrange for a 2D echocardiogram with color Doppler and spectral flow Doppler study. 3. Hemoptysis. I will check a CT scan of the thorax with contrast. 4. Hypokalemia. I will give potassium chloride 40 mEq by mouth x1 dose, and recheck a BMP in the morning. cc: Ahmet Martinez MD
[2018-11-17] MEDS: LASIX IV SCH ×2 (09:02→22:25)
[2018-11-17] MEDS: ALTACE PO SCH (09:02)
[2018-11-17] MEDS: CELEXA PO SCH (09:02)
[2018-11-17] MEDS: LEVAQUIN 500 MG/D5W 500 MG/100 ML IVPB IV SCH (09:02)
--- NOTE | 2018-11-17 11:35 | Diag Imaging Result Doc PS360 ---
EXAM: CT ANGIOGRM PULMONARY ARTERIES 11/17/2018 HISTORY: persistant dyspnea and hemoptysis TECHNIQUE: This exam was performed using automated exposure control, adjustment of mA or kV according to patient size, and/or use of iterative reconstruction technique. COMMENT: There is no evidence of filling defects in the pulmonary arteries. 3-D MIPS were performed. There is some motion artifact. The aorta is not distended and there is no evidence of dissection. There are small bilateral pleural effusions. There is a hiatal hernia. There is increased interstitial opacity in both lower lobes and the posterior left upper lobe. There is severe COPD. No previous thoracic studies are available for comparison. The opacities in the lung bases were not present previously on the abdominal study of 11/13/2018. The pleural fluid collections were also not previously present. IMPRESSION: COPD with superimposed pneumonia and/or pulmonary edema. Bilateral small pleural effusions. No evidence of pulmonary emboli. Electronically signed by Barney Colón 11/17/2018 11:33 AM
--- NOTE | 2018-11-17 14:58 | ECHO REPORT ---
ORDER DATE: 11/17/2018 INDICATION: Dyspnea, pulmonary edema. FINDINGS: 1. The right atrium appears normal in size. 2. Mild tricuspid regurgitation. RV systolic pressure of 48. 3. Normal RV size and systolic function. 4. No significant pulmonic insufficiency. 5. Normal left atrial size with a dimension of 3.8 cm. 6. No mitral valve prolapse. Trace mitral regurgitation. 7. Normal LV size, end-diastolic dimension of 4.2. Normal wall thicknesses with a posterior and interventricular septal thickness of 0.8 cm each. Normal LV systolic function. Estimated EF of 65 to 70 percent with normal wall motion. 8. Aortic valve opens well. No evidence of stenosis or insufficiency. 9. Aorta appears normal in visualized segments. 10. No pericardial effusion seen. cc: MD Ahmet Mendoza MD
[2018-11-17] MEDS: PRAVACHOL PO SCH (22:25)
[2018-11-17] MEDS: LOVENOX SUBQ SCH (22:26)
[2018-11-18] MEDS: DUONEB (A & A) INH SCH ×6 (03:42→23:30)
[2018-11-18] MEDS: PRILOSEC PO SCH (06:15)
[2018-11-18] MEDS: CLINDAMYCIN 900 MG/D5W 900 MG/50 ML IVPB IV SCH ×3 (06:15→21:02)
[2018-11-18] MEDS: HUMULIN R SUBQ SCH ×4 (06:15→21:45)
--- NOTE | 2018-11-18 07:31 | PROGRESS NOTE ---
DATE: 11/18/2018 Mr. Hernandez is postoperative day #4 following a laparoscopic cholecystectomy for gallstone pancreatitis. He was unable to tolerate the GI soft diet due to nausea and dry heaves. He has not had any worsening abdominal pain. He reports that he is breathing more comfortably this morning. O2 saturations are ranging from 96% to 97% on 4 L. He has had negative I's and O's of 8600 mL over the past 3 days. He still has a persistent nonproductive cough. Chest x-ray demonstrated a right lower lobe pneumonia with some interstitial edema. His 2D echocardiogram with color Doppler and spectral flow Doppler studies was within normal limits. A CT scan of the thorax demonstrated severe COPD type changes but no evidence of pulmonary malignancy or PTE. Blood sugars are fluctuating. OBJECTIVE: Vital Signs: Temperature 99 degrees, pulse 86, BP 126/54. CV: Regular rate and rhythm. Lungs: Improved air movement throughout all lung harman. There are faint crackles in the bases. Abdomen: Soft, nontender, with active bowel sounds. No hepatosplenomegaly. No abdominal bruits. Extremities: Without edema. ASSESSMENT AND PLAN: 1. Gallstone pancreatitis. Postoperative day #4 following laparoscopic cholecystectomy. He was unable to tolerate a GI soft diet. We will back him down to full liquids and advance as tolerated. 2. Flash pulmonary edema. As he has had excellent urine output over the past 3 days, I will back down the Lasix to 40 mg p.o. daily. 3. Aspiration pneumonitis. I will continue Levaquin, clindamycin as well as DuoNeb nebulizer treatments. 4. Type 2 apd-xterqsk-avjafvllg diabetes mellitus. Blood sugars are fluctuating. I am going to resume metformin 1000 mg b.i.d., Amaryl 1 mg b.i.d. and follow his blood sugars closely. cc: Ahmet Martinez MD
[2018-11-18 08:35] LABS: AGAP 13; BUN 11 mg/dL (8-22); CALCIUM 9.5 mg/dL (8.8-10.2); CHLORIDE 95 mmol/L (98-107); COSMO 278; ESTIMATED GFR > 60; GLUCOSE 255 mg/dL (70-104); POTASSIUM 3.2 mmol/L (3.5-5.1); SODIUM 135 mmol/L (136-145); TCO2 27 mmol/L (25-35)
[2018-11-18] MEDS: GLUCOPHAGE PO SCH ×2 (09:47→20:08)
[2018-11-18] MEDS: LASIX PO SCH (09:47)
[2018-11-18] MEDS: AMARYL PO SCH ×2 (09:47→20:08)
[2018-11-18] MEDS: ALTACE PO SCH (09:47)
[2018-11-18] MEDS: CELEXA PO SCH (09:47)
[2018-11-18] MEDS: LEVAQUIN 500 MG/D5W 500 MG/100 ML IVPB IV SCH (12:55)
[2018-11-18] MEDS: PHENERGAN IV PRN ×2 (15:28→21:45)
[2018-11-18] MEDS: PRAVACHOL PO SCH (20:08)
[2018-11-18] MEDS: LOVENOX SUBQ SCH (20:09)
[2018-11-19] MEDS: DUONEB (A & A) INH SCH ×6 (03:32→22:41)
[2018-11-19] MEDS: CLINDAMYCIN 900 MG/D5W 900 MG/50 ML IVPB IV SCH ×3 (05:05→22:14)
[2018-11-19] MEDS: HUMULIN R SUBQ SCH ×4 (06:15→22:14)
[2018-11-19] MEDS: PRILOSEC PO SCH (06:16)
--- NOTE | 2018-11-19 09:28 | PROGRESS NOTE ---
DATE: 11/19/2018 SUBJECTIVE: Mr. Hernandez had acute urinary retention postoperatively. The Mathias was discontinued yesterday. He is voiding freely. He was admitted with aspiration pneumonia and later developed acute pulmonary edema. Lung harman sound much better. He reports that he only has an intermittent cough. He is breathing much more comfortably. O2 saturations are in the range of 98 to 100 percent on 4 L of O2. He is tolerating a full liquid diet without nausea, vomiting, or abdominal pain. OBJECTIVE: Vital Signs: Temperature 98.8 degrees, pulse 90, BP 144/70, respiratory rate 22. CV: CV regular rate and rhythm. Lungs: Clear. Abdomen: Soft, nontender, with active bowel sounds. No hepatosplenomegaly. No abdominal bruits. ASSESSMENT AND PLAN: 1. Acute urinary retention, resolved. He is voiding freely. 2. Aspiration pneumonia. I will try to cut his oxygen down to 2 L and recheck an O2 saturation in 30 minutes. We will continue IV Levaquin and clindamycin. I will recheck a PA and lateral chest x-ray this morning. 3. Gallstone pancreatitis status post laparoscopic cholecystectomy. He is asymptomatic. I will advance him to a GI soft diet. cc: Ahmet Martinez MD
[2018-11-19] MEDS: CELEXA PO SCH (10:03)
[2018-11-19] MEDS: GLUCOPHAGE PO SCH ×2 (10:03→22:16)
[2018-11-19] MEDS: LASIX PO SCH (10:03)
[2018-11-19] MEDS: ALTACE PO SCH (10:03)
[2018-11-19] MEDS: AMARYL PO SCH ×2 (10:03→22:14)
[2018-11-19] MEDS: LEVAQUIN 500 MG/D5W 500 MG/100 ML IVPB IV SCH (10:04)
--- NOTE | 2018-11-19 16:33 | Diag Imaging Result Doc PS360 ---
EXAM: CHEST-2 VIEWS HISTORY: pneumonia and pulmonary edema TECHNIQUE: Chest two views COMPARISON: 11/17/2018 FINDINGS: The lungs are hyperexpanded. The heart is not enlarged. The vessels are not distended. The left mid and lower lung infiltrates are less dense on the current exam. No pleural effusions. IMPRESSION: Improvement in the left lower lobe pneumonia Electronically signed by Alphonso Martinez 11/19/2018 4:30 PM
[2018-11-19] MEDS: PRAVACHOL PO SCH (22:16)
[2018-11-19] MEDS: LOVENOX SUBQ SCH (22:17)
[2018-11-20] MEDS: DUONEB (A & A) INH SCH ×6 (03:25→23:32)
[2018-11-20] MEDS: CLINDAMYCIN 900 MG/D5W 900 MG/50 ML IVPB IV SCH ×3 (06:46→21:12)
[2018-11-20] MEDS: HUMULIN R SUBQ SCH ×4 (06:46→21:12)
[2018-11-20] MEDS: PRILOSEC PO SCH (06:47)
[2018-11-20] MEDS: ALTACE PO SCH (08:31)
[2018-11-20] MEDS: GLUCOPHAGE PO SCH ×2 (08:32→21:14)
[2018-11-20] MEDS: CELEXA PO SCH (08:32)
[2018-11-20] MEDS: LASIX PO SCH (08:32)
[2018-11-20] MEDS: AMARYL PO SCH ×2 (08:32→21:13)
[2018-11-20] MEDS: LEVAQUIN 500 MG/D5W 500 MG/100 ML IVPB IV SCH (08:33)
[2018-11-20] MEDS: SYMBICORT 160/4.5 MICROGM INHALER INH SCH ×2 (11:59→19:22)
--- NOTE | 2018-11-20 12:52 | PROGRESS NOTE ---
DATE: 11/20/2018 SUBJECTIVE: Mr. Hernandez has a persistent left lower lobe pneumonia. His chest x-ray from 11/19/2018 showed improvement in the degree of infiltrate. He continues with an intermittent cough and intermittent episodes of hemoptysis. We tried to wean him off his oxygen today. His O2 saturation was 89% on room air. We resumed O2 at 2 L per nasal cannula, and his O2 saturations are in the mid 90s. A CT scan of the thorax demonstrated COPD-type changes. No pulmonary nodules or PTE were noted. He is not having any abdominal pain, nausea, or vomiting. He is tolerating a GI soft diet. He had a laparoscopic cholecystectomy on 11/14/2018. Blood sugars are trending down with increased dosage of Amaryl. OBJECTIVE: Vital Signs: He is afebrile, pulse 84, respirations 15. Cardiovascular: Regular rate and rhythm. Lungs: Faint crackles in the left base. Abdomen: Soft, nontender, with active bowel sounds. ASSESSMENT AND PLAN: 1. Acute respiratory failure with acute chronic obstructive pulmonary disease exacerbation complicated by aspiration pneumonia. We will continue nebulizer treatments, IV Levaquin and clindamycin, and I will try to wean him off O2 completely prior to discharge. I have added Symbicort 160 mcg/4.5 mcg 2 puffs b.i.d. 2. Type 2 [id number]-[id number] diabetes mellitus. Blood sugars are fluctuating, but are trending down on the increased dosage of Amaryl. We will continue Amaryl and metformin. cc: Ahmet Martinez MD
[2018-11-20] MEDS: LOVENOX SUBQ SCH (21:13)
[2018-11-20] MEDS: PRAVACHOL PO SCH (21:14)
[2018-11-21] MEDS: DUONEB (A & A) INH SCH ×2 (03:40→07:53)
[2018-11-21] MEDS: CLINDAMYCIN 900 MG/D5W 900 MG/50 ML IVPB IV SCH (05:20)
[2018-11-21] MEDS: HUMULIN R SUBQ SCH (06:00)
[2018-11-21] MEDS: PRILOSEC PO SCH (06:19)
[2018-11-21 07:47] VITALS: BP 104/50
[2018-11-21] MEDS: SYMBICORT 160/4.5 MICROGM INHALER INH SCH (07:53)
[2018-11-21] MEDS: GLUCOPHAGE PO SCH (09:45)
[2018-11-21] MEDS: ALTACE PO SCH (09:45)
[2018-11-21] MEDS: CELEXA PO SCH (09:45)
[2018-11-21] MEDS: AMARYL PO SCH (09:46)
[2018-11-21] MEDS: LASIX PO SCH (09:46)
[2018-11-21] MEDS: LEVAQUIN 500 MG/D5W 500 MG/100 ML IVPB IV SCH (09:46)
--- NOTE | 2018-11-21 11:20 | DISCHARGE SUMMARY ---
ADMISSION DATE: 11/13/2018 DISCHARGE DATE: 11/21/2018 FINAL DIAGNOSIS: 1. Acute gallstone pancreatitis. 2. Chronic cholecystitis. 3. Essential hypertension. 4. Mixed hyperlipidemia. 5. Gastroesophageal reflux disease. 6. Type 2 diabetes mellitus. PRESENT ILLNESS: Mr. Hernandez presented to the emergency room with a 3 day history of sharp right upper quadrant and epigastric pain associated with nausea and vomiting. He denied increased reflux symptoms, melena, or bright red blood per rectum. CT scan of the abdomen and pelvis demonstrated edema in the head of the pancreas and suspected stones in the neck of the gallbladder. He also reported a cough productive of [id number] sputum with previous low- grade fever with a maximum temperature of 100.0, had some mild pleuritic chest pain on the right side. PHYSICAL EXAMINATION: General: Revealed an elderly gentleman in no distress. Vital signs: He was afebrile with heart rate of 91, blood pressure 150/64. HEENT: Exam revealed mild arteriolar narrowing of the retinal vessels. Neck: Supple. Lungs: Clear with occasional faint rhonchi heard in the right upper lung field. Abdomen: Abdominal exam was remarkable for epigastric and right upper quadrant tenderness with some guarding, but no rebound tenderness. Bowel sounds were active. Extremities: No edema. LABORATORY FINDINGS: Sodium 133, potassium 3.9, BUN 13, creatinine 0.9, glucose 231, bilirubin 0.47, liver enzymes normal. Amylase and lipase were normal. HOSPITAL COURSE: He was admitted to the Medical floor with a diagnosis of acute gallstone pancreatitis. Dr. Emeterio Garduno, general surgeon, was consulted and advised urgent laparoscopic cholecystectomy. This was accomplished uneventfully on 11/14/2018. Due to his abnormal chest x- ray and suspected aspiration pneumonitis due to the vomiting, he was treated with intravenous Levaquin and clindamycin. On 11/17, he underwent CT angiogram of the pulmonary arteries, which showed no evidence of pulmonary emboli. COPD with superimposed pneumonia was suspected. He also had an echocardiogram performed, which revealed normal left ventricular size and systolic function with an ejection fraction estimated at 65% to 70% with normal wall motion. At discharge, he was active and ambulatory and has no shortness of breath and walking to the bathroom and back. He is eager to return home and has his to look after him at home as well. He has had several bowel movements since surgery. His room oxygen saturation is 95% on room air. He is discharged in improved condition and is to return to see Dr. Martinez in 8-14 days for transition of care visit. DISCHARGE MEDICATIONS: Acetaminophen 650 mg q.4 hours p.r.n. for pain, levofloxacin 500 mg daily for 5 additional days, Symbicort metered-dose inhaler 160/4.5 2 puffs twice a day, clindamycin capsule 300 mg 3 times a day for 5 days. He is to resume his home medications as follows: Metformin 1000 mg twice a day, omeprazole 40 mg q.a.m., pravastatin 80 mg at bedtime, Ramipril 5 mg daily, citalopram 20 mg daily, glimepiride 1 mg twice a day. cc: MD Ahmet Leahy MD MTDFlorian
== END 2018-11-21 11:40 | disposition home or self-care (01) | DRG 417 ==
LOC: ED 14:29 → 3N 19:02
PROVIDERS: ADMIT Internal Medicine; ATTEND Internal Medicine